=== PATIENT | male | born 1945 | race Caucasian/White ===

== ENCOUNTER 2016-07-04 18:03 | Emergency (ER) | payer OTHER ==
[2016-07-04 18:15] VITALS: BP 154/56; PULSE 66; RESP 16; TEMP 97.5; O2SAT 96
--- NOTE | 2016-07-04 18:50 | UCPHY ---
H & P Time Seen by Provider: 07/04/16 18:18 Patient Type: Established HPI/ROS: 71-year-old male presents complaining of laceration to his left pointer finger obtained by boxer operator while he was cleaning out his garage. Able to move his finger without difficulty. Review of systems General no fever no chills no weakness HEENT no eye pain no eye discharge. No eye redness, no sore throat Respiratory no cough, no shortness of breath Cardiac no chest pain, no peripheral edema GI no abdominal pain, no diarrhea, no constipation, no nausea, no vomiting no flank pain, no hematuria, no dysuria Musculoskeletal no myalgias, no joint pain Heme no easy bruising, no easy bleeding Endo no polyuria, no polydipsia Skin no rashes, no pruritus Neuro no syncope, no dizziness, no headaches Psych is no suicidal ideation, no homicidal ideation Past Medical/Surgical History: Hypertension Vitamin-D deficiency Social History: Denies drug use Smoking Status: Former smoker Physical Exam: 71-year-old male alert and oriented no acute distress nontoxic appearance afebrile Alert and oriented in no acute distress nontoxic appearance, afebrile Atraumatic normocephalic Neck no JVD Lungs clear to auscultation, no respiratory distress Heart regular rate and rhythm Extremities no cyanosis clubbing edema Left hand-good capillary refill, full range of motion of all digits. Left pointer finger radial aspect, L-shaped laceration Constitutional: Initial Vital Signs Temperature (C) 36.4 C 07/04/16 18:09 Heart Rate 66 07/04/16 18:09 Respiratory Rate 16 07/04/16 18:09 Blood Pressure 154/56 H 07/04/16 18:09 O2 Sat (%) 96 07/04/16 18:09 O2 Delivery Mode Room Air Allergies/Adverse Reactions: codeine [Codeine] Allergy (Severe, Verified 07/04/16 18:12) Anaphylaxis morphine [Morphine] Allergy (Severe, Verified 07/04/16 18:12) Anaphylaxis Home Medications: Medication Instructions Recorded Aspirin [Aspirin 81mg (*)] 12/05/12 Carvedilol [Coreg (*)] 12/05/12 Cholecalciferol Vit D3 [Vitamin D3 12/05/12 (*)] Clopidogrel Bisulfate [Plavix (*)] 12/05/12 Enalapril Maleate [Vasotec 5 MG 12/05/12 (*)] Multivitamins [Multivitamin (*)] 12/05/12 NIFEdipine ER [Adalat CC 30 mg (*)] 12/05/12 [place]-3 Fatty Acids [Fish Oil 1000 04/13/14 mg (*)] Gabapentin [Neurontin] 09/07/14 Glucosamine Sulfate [Glucosamine 09/07/14 Sulfate 500 MG (*)] Magnesium Oxide [Magnesium Oxide 09/07/14 500 mg] Simvastatin [Zocor] 09/07/14 buPROPion SR [Wellbutrin 150mg SR 09/07/14 (*)] Medical Decision Making Procedures: Procedure note-laceration The wound was irrigated with copious amounts of saline. Lidocaine 1% combined with bupivacaine 0.25% for digital block 5 simple interrupted sutures were placed. 4-0 Ethilon was used. Patient tolerated procedure well. ED Course/Re-evaluation: Patient seen and evaluated for finger laceration No tendon involvement no joint involvement Impression Left pointer finger laceration Plan Sutured care Return in 10-12 days for suture removal Departure - Departure Disposition: Home, Routine, Self-Care Clinical Impression: Finger laceration Condition: Good Instructions: Finger Laceration (ED) Additional Instructions: Return in 10-12 days for suture removal Referrals: Betsy Dallas MD [Primary Care Provider] - As per Instructions - PQRS PQRS Measurement: na
== END 2016-07-04 19:45 | disposition home or self-care (01) ==
LOC: CED 18:03
PROC: 0HQGXZZ Repair Left Hand Skin, External Approach (ICD-10-PCS; principal; 2016-07-04)
DX: S61.211A Laceration without foreign body of left index finger without damage to nail, initial encounter (principal); W27.0XXA Contact with workbench tool, initial encounter; Y92.015 Private garage of single-family (private) house as the place of occurrence of the external cause; Y93.E9 Activity, other interior property and clothing maintenance; Y99.8 Other external cause status; Z87.891 Personal history of nicotine dependence
CPT/HCPCS: 12001; G0463

== ENCOUNTER → 2016-11-05 | Outpatient (CLI) | payer OTHER | LOC: CIMAGING 12:30 | DX: Z95.828 Presence of other vascular implants and grafts (principal) | CPT/HCPCS: 93880-PO ==

== ENCOUNTER → 2016-12-22 | Outpatient (CLI) | payer OTHER | LOC: FIMAGING 07:46 | PROVIDERS: ATTEND Orthopaedic Surgery | DX: S83.242A Other tear of medial meniscus, current injury, left knee, initial encounter (principal); M22.42 Chondromalacia patellae, left knee ==

== ENCOUNTER 2017-09-08 09:15 | Inpatient (IN) | payer OTHER ==
[2017-11-17] MEDS ORDERED: ROPIVACAINE 0.2% 80 MG, EPINEPHrine 0.2 MG, KETOROLAC TROMETHAMINE 30 MG, morphINE 10 M... IU ONE (06:00)
[2017-11-17] MEDS ORDERED: ceFAZolin 2 GM/SWFI 2 GM/20 ML SYR IVP ONE (06:00)
[2017-11-17] MEDS ORDERED: FAMOTIDINE 20 MG TAB PO ONE ×2 (06:00→11:04)
[2017-11-17] MEDS ORDERED: ACETAMINOPHEN 325 MG TAB PO ONE ×2 (06:00→11:04)
[2017-11-17] MEDS ORDERED: TRANEXAMIC ACID 3,000 MG in NS (SYRINGE) 50 ML IRR ONE (06:00)
[2017-11-17] MEDS ORDERED: DEXAMETHASONE 4 MG/ML VIAL IVP ONE ×2 (06:00→11:04)
[2017-11-17] MEDS ORDERED: ROPIVACAINE 0.2% 80 MG, EPINEPHrine 0.2 MG, KETOROLAC TROMETHAMINE 30 MG in SYRINGE 0 ML IU ONE (06:00)
--- NOTE | 2017-11-17 07:18 | PDHPUP ---
History & Physical Update H&P update statement: This history and physical update is based on an assessment of the patient which was completed after admission or registration (within 24 hours), but prior to the surgery/procedure. H&P update: H&P reviewed & patient examined, no change in patient's condition since H&P completed
[2017-11-17] MEDS ORDERED: TRANEXAMIC ACID 3,000 MG/50 ML BAG IRR ONE (10:26)
[2017-11-17] MEDS ORDERED: ceFAZolin 2 GM/DEXTROSE 100 ML IV ONE (11:04)
[2017-11-17] MEDS ORDERED: LR 1,000 ML IV ONE (11:07)
[2017-11-17] MEDS ORDERED: LIDOCAINE 1% 2 ML INJ ID PRN (11:07)
[2017-11-17 11:52] LABS: PLATELET COUNT 149 10^3/uL (150-400)
[2017-11-17] MEDS ORDERED: MIDAZOLAM 2 MG/2 ML VIAL IVP ONE (13:03)
--- NOTE | 2017-11-17 13:05 | PDANEPAE ---
ANE History of Present Illness l knee oa ANE Past Medical History - Cardiovascular History Hx Hypertension: Yes Hx Arrhythmias: Yes Hx Chest Pain: No Hx Coronary Artery / Peripheral Vascular Disease: Yes Hx CHF / Valvular Disease: Yes Hx Palpitations: No Cardiovascular History Comment: VENTRICULAR TACHYCARDIA. CAD WITH STENT,OHS triple bypass, aortic insufficiency. PVD WITH CLAUDICATION. HTN. - Pulmonary History Hx COPD: No Hx Asthma/Reactive Airway Disease: No Hx Recent Upper Respiratory Infection: No Hx Oxygen in Use at Home: No Hx Sleep Apnea: Yes Sleep Apnea Screening Result - Last Documented: Positive Pulmonary History Comment: SPARKLE DX HAD SLEEP APNEA SURGERY- REFUSES TO USE CPAP OR O2 - Neurologic History Hx Cerebrovascular Accident: No Hx Seizures: No Hx Dementia: No Neurologic History Comment: carotid stent - Endocrine History Hx Diabetes: No Endocrine History Comment: NIDDM - Renal History Hx Renal Disorders: Yes Renal History Comment: HX OF KIDNEY STONE SURGERY 2011 - Liver History Hx Hepatic Disorders: No - Neurological & Psychiatric Hx Hx Neurological and Psychiatric Disorders: Yes Neurological / Psychiatric History Comment: DEPRESSION. ANXIETY WITH CURRENT SITUATION - Cancer History Hx Cancer: No Cancer History Comment: SKIN CANCER - Congenital Disorder History Hx Congenital Disorders: No - GI History Hx Gastrointestinal Disorders: No Gastrointestinal History Comment: reflux - Other Health History Other Health History: NONE - Chronic Pain History Chronic Pain: Yes (CHRONIC PAIN AND LEFT SHOULDER, BILATERAL LEGS) - Surgical History Prior Surgeries: TIPLE BYPASS 2004. CARDIAC STENTS PLACED 2003. BILATERAL SHOULDER SURGERY. BILATERAL HAND SURGERY. LEFT HIP SCOPE. 4 STENTS PLACED IN RIGHT UPPER LEG 04/2014. KNEE SURGERY. SPARKLE SURGERY. KIDNEY STONE SURGERY 2011 ANE Review of Systems Review of Systems: - Exercise capacity METS (RN): 4 METS ANE Patient History - Allergies Allergies/Adverse Reactions: codeine [Codeine] Allergy (Severe, Verified 11/17/17 11:44) Anaphylaxis morphine [Morphine] Allergy (Severe, Verified 11/17/17 11:44) Anaphylaxis - Home Medications Home Medications: Acetaminophen [Tylenol 325mg (*)] 325 mg PO Q6H PRN 08/24/17 [Last Taken ] Aspirin EC [Aspirin EC 81 mg (*)] 81 mg PO DAILY 08/24/17 [Last Taken 11/16/17] Bupropion HCl [Bupropion HCl Sr] 150 mg PO HS 08/24/17 [Last Taken 11/16/17] Bupropion HCl [Bupropion HCl Sr] 300 mg PO DAILY 08/24/17 [Last Taken 11/17/17 06:15] Carvedilol [Coreg (*)] 6.25 mg PO BIDMEAL 08/24/17 [Last Taken 11/17/17 06:15] Cholecalciferol Vit D3 [Vitamin D3 (*)] 5,000 units PO DAILY 08/24/17 [Last Taken 11/16/17] Clopidogrel Bisulfate [Plavix (*)] 75 mg PO DAILY 08/24/17 [Last Taken 11/09/17] Enalapril Maleate [Vasotec 5 MG (*)] 5 mg PO DAILY 08/24/17 [Last Taken 11/16/17 ] Gabapentin [Neurontin 300 MG (*)] 450 mg PO HS 08/24/17 [Last Taken 11/16/17] Gabapentin [Neurontin 300 MG (*)] 600 mg PO DAILY 08/24/17 [Last Taken 11/17/17 06:15] Magnesium Oxide [Magnesium Oxide 400 mg (*)] 400 mg PO DAILY 08/24/17 [Last Taken 11/16/17] NIFEdipine ER [Adalat CC 30 mg (*)] 30 mg PO DAILY 08/24/17 [Last Taken 06:15] [place]-3 Fatty Acids [Fish Oil 1000 mg (*)] 2,000 mg PO DAILY 08/24/17 [Last Taken 11/16/17] Simvastatin [Zocor] 80 mg PO HS 08/24/17 [Last Taken 11/16/17 21:00] metFORMIN HCL [Metformin HCl] 500 mg PO DAILY 08/24/17 [Last Taken 11/16/17 06: 30] - NPO status NPO Since - Liquids (Date): 11/17/17 NPO Since - Liquids (Time): 09:15 NPO Since - Solids (Date): 11/16/17 NPO Since - Solids (Time): 21:00 - Smoking Hx Smoking Status: Former smoker - Family Anes Hx Family Hx Anesthesia Complications: NONE ANE Labs/Vital Signs - Labs Result Diagrams: 11/17/17 11:45 11/17/17 11:45 - Vital Signs Blood Pressure: 143/58 Heart Rate: 64 Respiratory Rate: 16 O2 Sat (%): 93 Height: 180.34 cm Weight: 98.43 kg ANE Physical Exam - Airway Neck exam: FROM Mallampati Score: Class 2 Mouth exam: dentures - Pulmonary Pulmonary: no respiratory distress - Cardiovascular Cardiovascular: regular rate and rhythym - ASA Status ASA Status: IV ANE Anesthesia Plan Anesthesia Plan: MAC, spinal Regional Anesthesia: adductor canal FNB
[2017-11-17] MEDS ORDERED: fentaNYL 100 MCG/2 ML INJ ONE (13:37)
[2017-11-17] MEDS ORDERED: PROPOFOL/EMULSION 500 MG/50 ML BOTTLE IV ONE (13:37)
[2017-11-17] MEDS ORDERED: LACTULOSE 20 GM/30 ML UDCUP PO PRN (14:18)
[2017-11-17] MEDS ORDERED: METOCLOPRAMIDE 10 MG/2 ML VIAL IVP PRN (14:18)
[2017-11-17] MEDS ORDERED: PROMETHAZINE HCL 25 MG SUPPR PR PRN (14:18)
[2017-11-17] MEDS ORDERED: POLYETHYLENE GLYCOL 3350 17 GM PKT PO PRN (14:18)
[2017-11-17] MEDS ORDERED: DIPHENOXYLATE/ATROPINE LOMOTIL 1 TAB PO PRN (14:18)
[2017-11-17] MEDS ORDERED: BISACODYL 10 MG SUPP PR PRN (14:18)
[2017-11-17] MEDS ORDERED: MAGNESIUM HYDROXIDE 30 ML UDCUP PO PRN (14:18)
[2017-11-17] MEDS ORDERED: diphenhydrAMINE 25 MG CAP PO PRN (14:18)
[2017-11-17] MEDS ORDERED: ONDANSETRON 4 MG/2 ML VIAL IVP PRN (14:18)
[2017-11-17] MEDS ORDERED: TEMAZEPAM 15 MG CAP PO PRN (14:18)
[2017-11-17] MEDS ORDERED: ONDANSETRON DISINTEGRATING 4 MG TAB PO PRN (14:18)
[2017-11-17] MEDS ORDERED: PROMETHAZINE HCL 25 MG/ML INJ IVP PRN (14:18)
[2017-11-17] MEDS ORDERED: LR 1,000 ML IV SCH (14:30)
[2017-11-17] MEDS ORDERED: ROPIVACAINE HCL 150 MG/30 ML INJ ONE (14:48)
[2017-11-17] MEDS ORDERED: fentaNYL 100 MCG/2 ML INJ IVP PRN (14:56)
[2017-11-17] MEDS ORDERED: HYDROmorphONE/DILAUDID 1 MG/ML INJ IVP PRN (14:56)
[2017-11-17] MEDS ORDERED: NALOXONE HCL 0.4 MG/ML INJ IVP PRN (14:56)
--- NOTE | 2017-11-17 15:24 | POSTANESTH ---
Post Anesthetic Evaluation Cardiovascular Status: Normal, Stable Respiratory Status: Normal, Stable Level of Consciousness/Mental Status: Can Participate in Eval Pain Control: Adequate, Prn Tx Ordered Nausea/Vomiting Control: Adequate, Prn Tx Ordered Complications Possibly Related to Anesthesia: None Noted
[2017-11-17] MEDS ORDERED: HYDROmorphONE/DILAUDID 1 MG/ML INJ ONE (15:58)
--- NOTE | 2017-11-17 15:58 | POSTOPPROG ---
Post Op Note Date of Operation: 11/17/17 Surgeon: Rashid Daley Ekg Monitor Tech: Mavrin Daley PAc Anesthesiologist: Marni Anesthesia: Spinal Pre-op Diagnosis: L knee DJD Post-op Diagnosis: same Indication: pain Procedure: L TKA Findings: DJD knee Inf/Abcess present in the surg proc area at time of surgery?: No EBL: 50-100
[2017-11-17] MEDS ORDERED: D50W 25 GM/50 ML SYR IVP PRN (16:00)
[2017-11-17] MEDS: HYDROmorphONE/DILAUDID 2 MG TAB PO PRN (17:21)
[2017-11-17] MEDS: ACETAMINOPHEN 325 MG TAB PO SCH (17:21)
[2017-11-17] MEDS: CYCLOBENZAPRINE 10 MG TAB PO PRN (17:22)
[2017-11-17] MEDS: INSULIN REGULAR HUMAN 100 UNIT/ML UNIT SC SCH ×2 (17:32→21:37)
[2017-11-17] MEDS: CARVEDILOL 6.25 MG TAB PO SCH (17:32)
[2017-11-17] MEDS ORDERED: GABAPENTIN 300 MG CAP PO SCH (21:00)
[2017-11-17] MEDS: buPROPion SR 150 MG TAB PO SCH (21:37)
[2017-11-17] MEDS: GABAPENTIN 300 MG CAP PO SCH (21:37)
[2017-11-17] MEDS: SENNOSIDES/DOCUSATE SODIUM TAB PO SCH (21:37)
[2017-11-17] MEDS: ATORVASTATIN CALCIUM 40 MG TAB PO SCH (21:37)
[2017-11-17] MEDS: FAMOTIDINE 20 MG TAB PO SCH (21:37)
[2017-11-17] MEDS: ceFAZolin 2 GM/DEXTROSE 100 ML IV SCH (21:39)
[2017-11-18] MEDS: ACETAMINOPHEN 325 MG TAB PO SCH ×4 (00:24→18:04)
[2017-11-18] MEDS: ceFAZolin 2 GM/DEXTROSE 100 ML IV SCH (05:08)
[2017-11-18] MEDS: INSULIN REGULAR HUMAN 100 UNIT/ML UNIT SC SCH ×4 (08:39→22:04)
[2017-11-18] MEDS: ENALAPRIL MALEATE 5 MG TAB PO SCH (08:47)
[2017-11-18] MEDS: HYDROmorphONE/DILAUDID 2 MG TAB PO PRN ×4 (08:47→21:43)
[2017-11-18] MEDS: SENNOSIDES/DOCUSATE SODIUM TAB PO SCH ×2 (08:48→21:43)
[2017-11-18] MEDS: NIFEdipine ER 30 MG TAB PO SCH (08:48)
[2017-11-18] MEDS: GABAPENTIN 300 MG CAP PO SCH ×2 (08:48→21:43)
[2017-11-18] MEDS: MAGNESIUM OXIDE 400 MG TAB PO SCH (08:49)
[2017-11-18] MEDS: CARVEDILOL 6.25 MG TAB PO SCH ×2 (08:49→18:04)
[2017-11-18] MEDS: FAMOTIDINE 20 MG TAB PO SCH ×2 (08:49→21:43)
[2017-11-18] MEDS: metFORMIN HCL 500 MG TAB PO SCH (08:49)
[2017-11-18] MEDS: buPROPion SR 150 MG TAB PO SCH ×2 (08:49→21:44)
[2017-11-18] MEDS: CLOPIDOGREL BISULFATE 75 MG TAB PO SCH (08:50)
[2017-11-18] MEDS: ASPIRIN EC 81 MG TAB PO SCH (08:50)
--- NOTE | 2017-11-18 09:49 | SOAPPROG ---
SOAP Progress Note Assessment/Plan: Assessment: Patient is doing well POD 1 s/p L TKA Pain management: pain is well controlled on oral pain meds. VTE ppx: recommend resuming plavix and aspirin 81 mg cont RAFI and SCDs Anemia: level is expected initially postop. Asymptomatic. Continue to monitor D/c planning: d/c to home today vs tomorrow pending release from PT and patient 's comfort level. Patient's has expressed concern that she has a doctor's appt this afternoon and that she doesn't want to take him home before appt. Discussed with patient that he could be discharged after his 's appt if that alleviates some stress. Patient's has had multiple medical issues recently and recovering from surgery. Prior to surgery, discussed home health, but both stated that they did not want home health. case management was ordered. OT has seen patient, but no PT note yet. Plan: 11/18/17 09:44 Subjective: Da is doing well, resting comfortably, denies SOB, chest pain and N/V. Objective: Vital Signs Temp Pulse Resp BP Pulse Ox 36.6 C 67 16 135/81 H 92 11/18/17 07:58 11/18/17 08:49 11/18/17 07:58 11/18/17 08:49 11/18/17 07:58 Laboratory Results 11/18/17 05:16 11/18/17 05:16 11/17/17 11/18/17 11/19/17 05:59 05:59 05:59 Intake Total 2950 Output Total 1600 Balance 1350 LLE: incision dressing is clean and dry, NVI, +pf/df ICD10 Worksheet Patient Problems: Problems Problem Status Onset Primary localized osteoarthritis of left knee Acute Claudication Acute Unstable angina Acute
--- NOTE | 2017-11-18 11:01 | GOP ---
[f rep st] OPERATIVE REPORT DATE OF OPERATION: 11/18/2017 SURGEON: Nell Daley MD [employer] OPERATOR: KLEVER Davis. ANESTHESIA: Spinal. PREOPERATIVE DIAGNOSIS: Left knee osteoarthritis. POSTOPERATIVE DIAGNOSIS: Left knee osteoarthritis. PROCEDURE PERFORMED: Total knee arthroplasty. FINDINGS: Severe medial and patellofemoral osteoarthritis. ESTIMATED BLOOD LOSS: 30 mL. INDICATIONS: This is a 72-year-old male with severe and progressive pain and deformity of the left k nee unresponsive to conservative care. Risks and benefits of the surgical intervention were explaine d in detail. DESCRIPTION OF PROCEDURE: The patient was brought to the operative room and placed on the table in t he supine position. Spinal anesthesia was induced without difficulty. A pneumatic tourniquet was ap plied about the left proximal thigh, and the leg was prepped and draped in a sterile fashion. The le g bruce was applied. After exsanguination by elevation the tourniquet was inflated to 250 mm of monae cury. Incision was made anterior medial from the tibial tuberosity to a point 2 cm proximal to the superior pole of the patella. Medial parapatellar arthrotomy was carried out from the superior pole of the p atella and posteriorly in line with the fibers of the Type II VMO. The medial collateral ligament wa s elevated and the infrapatellar fat pad was resected. The patella was everted and the articular surface was excised. A 38 mm patellar button was placed. T he distal femoral guide hole was drilled and the 60 degree alignment toya was placed. A 10 mm distal femoral cut was made without difficulty. Attention was turned to the tibia and a standard 9 mm cut based on the lateral tibial condyle was per formed. The tibial articular surface was excised without difficulty. Attention was turned back to the femur and a size 5 femoral cutting block was positioned. Anterior, posterior, and chamfer cuts were made, followed by the intercondylar box cut. The knee was extended and the remnants of the medial and lateral meniscus were excised. The posterio r capsule was injected with ropivacaine, epinephrine and Toradol. A size 6 tibial tray was positione d. Trial reduction was then carried out. There was excellent range of motion, alignment, and stabil ity using the 11 mm polyethylene. All trials were then removed. The joint was thoroughly irrigated and carefully dried. Two packages of cement and 2 grams of vancomycin were mixed in the vacuum mixer and placed on the fixation surface s of all surfaces of the components. The components were implanted and all excess cement was thoroug hly removed. The permanent 11 mm polyethylene was placed without difficulty. The tourniquet was deflated and all bleeders were coagulated. The wound was thoroughly irrigated and closed using interrupted sutures of 2-0 Vicryl for the joint capsule. The subcu was closed with 3-0 Vicryl and the skin with 4-0 Monocryl. Dermabond and Steri-Strips were applied followed by a compre ssive dressing. The patient was then moved from the operating room to the recovery room in good cond ition, having tolerated the procedure well. COMPONENTS: Guy. /[id number]/MODL
--- NOTE | 2017-11-18 12:45 | ASMTCMCOM ---
CM Note CM Note Notes: Pt had planned L TKA. OT rec home/HHC, PT rec outpatient. Pt not interested in HHC; reports he knows what HHC is and he does not want to be "homebound." Pt has outpatient PT scheduled. Pt resides with . Pt declines resources such as [employer] Whe[employer] and information on private pay unskilled home care. Anticipate pt will d/c when medically stable, no CM d/c needs identified. Date Signed: 11/18/2017 12:45 PM Electronically Signed By:DARLYN Glynn
[2017-11-18] MEDS: CYCLOBENZAPRINE 10 MG TAB PO PRN (19:41)
[2017-11-18] MEDS: ATORVASTATIN CALCIUM 40 MG TAB PO SCH (21:43)
[2017-11-19] MEDS: ACETAMINOPHEN 325 MG TAB PO SCH ×2 (01:35→05:42)
[2017-11-19] MEDS: HYDROmorphONE/DILAUDID 2 MG TAB PO PRN ×2 (05:42→06:45)
[2017-11-19] MEDS: INSULIN REGULAR HUMAN 100 UNIT/ML UNIT SC SCH ×4 (07:34→22:32)
[2017-11-19] MEDS: CLOPIDOGREL BISULFATE 75 MG TAB PO SCH (08:46)
[2017-11-19] MEDS: MAGNESIUM OXIDE 400 MG TAB PO SCH (08:46)
[2017-11-19] MEDS: metFORMIN HCL 500 MG TAB PO SCH (08:46)
[2017-11-19] MEDS: SENNOSIDES/DOCUSATE SODIUM TAB PO SCH ×2 (08:46→21:20)
[2017-11-19] MEDS: CARVEDILOL 6.25 MG TAB PO SCH ×2 (08:47→18:06)
[2017-11-19] MEDS: NIFEdipine ER 30 MG TAB PO SCH (08:47)
[2017-11-19] MEDS: GABAPENTIN 300 MG CAP PO SCH ×2 (08:47→21:18)
[2017-11-19] MEDS: ASPIRIN EC 81 MG TAB PO SCH (08:47)
[2017-11-19] MEDS: FAMOTIDINE 20 MG TAB PO SCH ×2 (08:47→21:19)
[2017-11-19] MEDS: buPROPion SR 150 MG TAB PO SCH ×2 (08:48→21:20)
[2017-11-19] MEDS: ENALAPRIL MALEATE 5 MG TAB PO SCH (09:01)
--- NOTE | 2017-11-19 11:34 | PDHOSCONS ---
History and Physical - Chief Complaint Stroke alert called for slurred speech - History of Present Illness 72 yo male admitted for left TKA, performed by Dr. Daley yesterday, reportedly had slurred speech this am per RN and a stroke alert was called. He denies headache, vision changes or focal weakness. He received 4 mg oral dilaudid this morning. He reports a h/o TIA in the past. BP's have been labile. No CP or SOB. During my exam, his speech is fluent and he denies any focal symptoms. History Information - Allergies/Home Medication List Allergies/Adverse Reactions: codeine [Codeine] Allergy (Severe, Verified 11/17/17 11:44) Anaphylaxis morphine [Morphine] Allergy (Severe, Verified 11/17/17 11:44) Anaphylaxis Home Medications: Aspirin EC [Aspirin EC 81 mg (*)] 81 mg PO DAILY 08/24/17 [Last Taken 11/16/17] Bupropion HCl [Bupropion HCl Sr] 150 mg PO HS 08/24/17 [Last Taken 11/16/17] Bupropion HCl [Bupropion HCl Sr] 300 mg PO DAILY 08/24/17 [Last Taken 11/17/17 06:15] Carvedilol [Coreg (*)] 6.25 mg PO BIDMEAL 08/24/17 [Last Taken 11/17/17 06:15] Cholecalciferol Vit D3 [Vitamin D3 (*)] 5,000 units PO DAILY 08/24/17 [Last Taken 11/16/17] Clopidogrel Bisulfate [Plavix (*)] 75 mg PO DAILY 08/24/17 [Last Taken 11/09/17] Enalapril Maleate [Vasotec 5 MG (*)] 5 mg PO DAILY 08/24/17 [Last Taken 11/16/17 ] Gabapentin [Neurontin 300 MG (*)] 600 mg PO DAILY 08/24/17 [Last Taken 11/17/17 06:15] Magnesium Oxide [Magnesium Oxide 400 mg (*)] 400 mg PO DAILY 08/24/17 [Last Taken 11/16/17] NIFEdipine ER [Adalat CC 30 mg (*)] 30 mg PO DAILY 08/24/17 [Last Taken 06:15] [place]-3 Fatty Acids [Fish Oil 1000 mg (*)] 2,000 mg PO DAILY 08/24/17 [Last Taken 11/16/17] Simvastatin [Zocor] 80 mg PO HS 08/24/17 [Last Taken 11/16/17 21:00] metFORMIN HCL [Metformin HCl] 500 mg PO DAILY 08/24/17 [Last Taken 11/16/17 06: 30] Gabapentin [Neurontin] 900 mg PO HS 11/17/17 [Last Taken Unknown] I have personally reviewed and updated: family history, medical history, social history, surgical history - Past Medical History arthritis, diabetes type 2, hypertension, hyperlipidemia - Surgical History Additional surgical history: Left TKA 11/18/2017 - Family History Positive for: non-pertinent - Social History Smoking Status: Former smoker Additional social history: Lives independently Review of Systems Review of Systems: ROS: 10pt was reviewed & negative except for what was stated in HPI & below Physical Exam Physical Exam: Temp Pulse Resp BP Pulse Ox 36.6 C 67 17 128/56 H 95 11/19/17 07:30 11/19/17 08:47 11/19/17 07:30 11/19/17 09:01 11/19/17 07:30 O2 (L/minute) 1 Constitutional: no apparent distress Eyes: PERRL Ears, Nose, Mouth, Throat: moist mucous membranes Cardiovascular: regular rate and rhythym Respiratory: no respiratory distress, clear to auscultation Gastrointestinal: normoactive bowel sounds, soft, non-tender abdomen Skin: warm Musculoskeletal: full muscle strength Neurologic: AAOx3, other (no facial droop, neg pronator drift, 5/5 muscle strength UE's and LE's b/l) Psychiatric: interacting appropriately Lab Data & Imaging Review 11/19/17 04:33 11/19/17 12:55 WBC 6.00 10^3/uL (3.80-9.50) 11/17/17 11:45 RBC 4.92 10^6/uL (4.40-6.38) 11/17/17 11:45 Hgb 11.8 g/dL (13.7-17.5) L 11/19/17 04:33 Hct 36.1 % (40.0-51.0) L 11/19/17 04:33 MCV 86.2 fL (81.5-99.8) 11/17/17 11:45 MCH 28.9 pg (27.9-34.1) 11/17/17 11:45 MCHC 33.5 g/dL (32.4-36.7) 11/17/17 11:45 RDW 13.5 % (11.5-15.2) 11/17/17 11:45 Plt Count 149 10^3/uL (150-400) L 11/17/17 11:45 MPV 9.4 fL (8.7-11.7) 11/17/17 11:45 Neut % (Auto) 57.3 % (39.3-74.2) 11/17/17 11:45 Lymph % (Auto) 29.7 % (15.0-45.0) 11/17/17 11:45 [place] % (Auto) 10.3 % (4.5-13.0) 11/17/17 11:45 Eos % (Auto) 2.0 % (0.6-7.6) 11/17/17 11:45 Baso % (Auto) 0.5 % (0.3-1.7) 11/17/17 11:45 Nucleat RBC Rel Count 0.0 % (0.0-0.2) 11/17/17 11:45 Absolute Neuts (auto) 3.44 10^3/uL (1.70-6.50) 11/17/17 11:45 Absolute Lymphs (auto) 1.78 10^3/uL (1.00-3.00) 11/17/17 11:45 Absolute Monos (auto) 0.62 10^3/uL (0.30-0.80) 11/17/17 11:45 Absolute Eos (auto) 0.12 10^3/uL (0.03-0.40) 11/17/17 11:45 Absolute Basos (auto) 0.03 10^3/uL (0.02-0.10) 11/17/17 11:45 Absolute Nucleated RBC 0.00 10^3/uL (0-0.01) 11/17/17 11:45 Immature Gran % 0.2 % (0.0-1.1) 11/17/17 11:45 Immature Gran # 0.01 10^3/uL (0.00-0.10) 11/17/17 11:45 Sodium 136 mEq/L (135-145) 11/18/17 05:16 Potassium 4.5 mEq/L (3.3-5.0) 11/18/17 05:16 Chloride 106 mEq/L (97-110) 11/18/17 05:16 Carbon Dioxide 26 mEq/l (22-31) 11/18/17 05:16 Anion Gap 4 mEq/L (8-16) L 11/18/17 05:16 BUN 16 mg/dL (7-23) 11/18/17 05:16 Creatinine 0.8 mg/dL (0.7-1.3) 11/18/17 05:16 Estimated GFR > 60 11/18/17 05:16 Glucose 170 mg/dL (70-100) H 11/18/17 05:16 POC Glucose 134 mg/dL (70-100) H 11/19/17 11:19 Calcium 8.8 mg/dL (8.5-10.4) 11/18/17 05:16 Assessment & Plan Assessment: Slurred speech - suspect opioid side effect. Stroke alert called. On my exam, he is neurologically intact. -STAT CT head without contrast, but stand-down on stroke alert -avoid opioids -frequent neurochecks Primary localized osteoarthritis of left knee (Acute) - s/p left TKA, post-op management per orthopedic surgery. Given suspected side effects from Dilaudid, will d/c and add scheduled high dose Tylenol with prn Tramadol for pain control. Hypertension - BP's a bit labile post-operatively. -cont Coreg, Jurgen, Nifedipine H/O TIA - on ASA, Plavix, statin Full code Dispo - cont inpt. Medicine will continue to follow.
[2017-11-19] MEDS: ACETAMINOPHEN 500 MG TAB PO SCH ×2 (12:24→21:19)
[2017-11-19] MEDS: traMADol 50 MG TAB PO PRN ×2 (12:24→18:29)
--- NOTE | 2017-11-19 14:15 | PDMN ---
Medical Necessity Medical necessity: [facility] S700 Knee Arthroplasty, Total, A-2 days. 72 y/o status changed from OBS to INPT 11/19/17 @ 1048 due to "multiple comorbidities, difficulty postop, more than anticipated prior to surgery. Recommend inpatient for PT and medical assistance and care post op." Patient developed slurred speech post op, stroke alert called, CT head WNL, possible opioid side effect. Pt now on frequent neuro checks. Labile BPs. Pt has history TIA, CAD w/ Stent , OHS triple bypass, aortic insufficiency, hypertension, PVD with claudication, VTach.
--- NOTE | 2017-11-19 15:22 | ASMTCMCOM ---
CM Note CM Note Notes: Pt had slurred speech this morning, hospitalist now consulting. Today PT rec SNF. Spoke with pt and Anju about SNF rec. Pt is not interested in SNF, pt verbalizes his current physical challenges and limitations and states he can go home once his medications are under control. Anju was in [facility] a couple years ago and they both vacillate on if they would be agreeable to consider [facility] should SNF be needed. Pt still not agreeable to [facility], reports he has outpatient PT scheduled at [facility]. CM will continue to follow pt progress. Date Signed: 11/19/2017 03:21 PM Electronically Signed By:DARLYN Glynn
[2017-11-19] MEDS: ATORVASTATIN CALCIUM 40 MG TAB PO SCH (21:19)
[2017-11-20] MEDS: ACETAMINOPHEN 500 MG TAB PO SCH ×3 (04:34→21:27)
[2017-11-20] MEDS: traMADol 50 MG TAB PO PRN ×3 (04:35→17:30)
[2017-11-20] MEDS ORDERED: traMADol 50 MG TAB PO ONE (05:49)
[2017-11-20] MEDS: INSULIN REGULAR HUMAN 100 UNIT/ML UNIT SC SCH ×4 (08:20→21:23)
[2017-11-20] MEDS: metFORMIN HCL 500 MG TAB PO SCH (08:21)
[2017-11-20] MEDS: GABAPENTIN 300 MG CAP PO SCH ×2 (08:21→21:26)
[2017-11-20] MEDS: NIFEdipine ER 30 MG TAB PO SCH (08:21)
[2017-11-20] MEDS: ASPIRIN EC 81 MG TAB PO SCH (08:21)
[2017-11-20] MEDS: CLOPIDOGREL BISULFATE 75 MG TAB PO SCH (08:21)
[2017-11-20] MEDS: FAMOTIDINE 20 MG TAB PO SCH ×2 (08:21→21:27)
[2017-11-20] MEDS: MAGNESIUM OXIDE 400 MG TAB PO SCH (08:21)
[2017-11-20] MEDS: buPROPion SR 150 MG TAB PO SCH ×2 (08:22→21:28)
[2017-11-20] MEDS: CARVEDILOL 6.25 MG TAB PO SCH ×2 (08:22→17:29)
[2017-11-20] MEDS: SENNOSIDES/DOCUSATE SODIUM TAB PO SCH ×2 (08:22→21:28)
[2017-11-20] MEDS: ENALAPRIL MALEATE 5 MG TAB PO SCH (08:22)
--- NOTE | 2017-11-20 10:44 | SOAPPROG ---
SOAP Progress Note Assessment/Plan: Assessment: Patient is doing well POD 3 s/p L TKA 1). Pain management: pain is not well controlled. patient had incident of slurred speech yesterday and c/o sluggishness thought to be 2/2 narcotic pain meds. negative head CT scan. Patient had been receiving 650mg tylenol Q6H scheduled and 2mg dilaudid Q3H PRN, hospitalist d/c both, added in 25mg tramadol Q6H PRN and 1gram tylenol scheduled Q8H. Hospitalist was called this morning for request of additional pain meds by nurse. Orthopedics was not consulted. I believe patient needs more narcotic pain meds as tramadol is a weak opioid receptor agonist and as it is currently ordered he can max out at 100mg daily which is only 1/4 of total daily limit of 400mg. I will increase his tramadol and we should consider adding in 2mg dilaudid Q6H PRN. Discussed with patient the importance of PT. He refused PT all day yesterday due to pain. Increase risk of blood clots postop and poor outcomes if pain control is not controlled sufficiently to allow patient to work with PT. 2). VTE ppx: recommend resuming plavix and aspirin 81 mg cont RAFI and SCDs 3). Anemia: level is expected initially postop. Asymptomatic. Continue to monitor 4). D/c planning: d/c to home vs SNF. At this point, patient has not demonstrated that he safe for d/c to home and it is recommended that patient d/ c to SNF once safe to do so. Patient is reluctant and still prefers d/c to home if possible. Encouraged patient to work with PT and OT. I believe with better pain management it may be possible. Appreciate case management's assistance arranging postop needs. Plan: 11/18/17 09:44 11/20/17 10:36 Subjective: Da is resting comfortably in chair, but states pain is 5-6/10 and that he has significant increase in pain when he stands. Objective: Vital Signs Temp Pulse Resp BP Pulse Ox 36.7 C 79 17 138/68 H 93 11/20/17 07:28 11/20/17 07:28 11/20/17 07:28 11/20/17 07:28 11/20/17 07:28 Laboratory Results 11/19/17 04:33 11/19/17 12:55 11/19/17 11/20/17 11/21/17 05:59 05:59 05:59 Intake Total 1050 1650 250 Output Total 700 3100 650 Balance 350 -1450 -400 LLE; incision dressing has small area of bloody drainage distal incision dressing, appears to have stopped, ICD10 Worksheet Patient Problems: Problems Problem Status Onset Primary localized osteoarthritis of left knee Acute Claudication Acute Unstable angina Acute
--- NOTE | 2017-11-20 13:53 | ASMTCMCOM ---
CM Note CM Note Notes: Met with patient and today to discuss discharge planning. PT still recommending SNF at this time. As stated previously, patient and hope to discharge home but are open to SNF. has been to [facility] before and is okay with CM sending referral today. I have sent referral to [facility] via [email or web address]. If patient improves and is able to discharge home - they would like [facility] if medical team is in agreement. indicated she may cancel patient's outpatient therapy appointment on . More TBD. D/C Plan: [facility] vs Home with possible HC. Date Signed: 11/20/2017 01:53 PM Electronically Signed By:Vilma Damon RN
--- NOTE | 2017-11-20 14:30 | HOSPPROG ---
Hospitalist Progress Note Assessment/Plan: Slurred speech - resolved. suspect opioid side effect. CT head neg. -avoid opioids if possible -cont neurochecks S/P TKA - scheduled Tylenol, prn Tramadol for pain control. Pt and note he doesn't do well with opiates, but poor pain control today -will give one time dose of IV toradol to address pain Hypertension - BP's well controlled post-operatively -cont Coreg, Jurgen, Nifedipine H/O TIA - cont ASA, Plavix, statin DVT PPLX - per ortho. I recommend Lovenox 40 mg daily Full code Dispo - cont inpt. Medicine will continue to follow. Subjective: Pt doing ok, slow to ambulate and difficulty with pain control today. No CP or SOB. No neurologic symptoms. Taking po well. No fevers. Objective: Vital Signs Temp Pulse Resp BP Pulse Ox 36.7 C 79 17 138/68 H 93 11/20/17 07:28 11/20/17 07:28 11/20/17 07:28 11/20/17 07:28 11/20/17 07:28 Laboratory Results 11/19/17 04:33 11/19/17 12:55 11/19/17 11/20/17 11/21/17 05:59 05:59 05:59 Intake Total 1050 1650 500 Output Total 700 3100 1050 Balance 350 -1450 -550 - Physical Exam Constitutional: no apparent distress Eyes: PERRL Ears, Nose, Mouth, Throat: moist mucous membranes Cardiovascular: regular rate and rhythym Respiratory: no respiratory distress Gastrointestinal: normoactive bowel sounds, soft, non-tender abdomen Skin: warm Musculoskeletal: full muscle strength, other Neurologic: AAOx3, sensation intact bilaterally Psychiatric: interacting appropriately ICD10 Worksheet Patient Problems: Problems Problem Status Onset Primary localized osteoarthritis of left knee Acute Claudication Acute Unstable angina Acute
[2017-11-20] MEDS ORDERED: KETOROLAC 15 MG/1 ML SDV IVP ONE (14:47)
[2017-11-20] MEDS: ATORVASTATIN CALCIUM 40 MG TAB PO SCH (21:28)
[2017-11-21] MEDS: traMADol 50 MG TAB PO PRN ×4 (01:40→20:56)
[2017-11-21] MEDS: ACETAMINOPHEN 500 MG TAB PO SCH ×4 (05:51→21:59)
[2017-11-21] MEDS: CYCLOBENZAPRINE 10 MG TAB PO PRN (05:52)
[2017-11-21] MEDS: metFORMIN HCL 500 MG TAB PO SCH (08:02)
[2017-11-21] MEDS: FAMOTIDINE 20 MG TAB PO SCH ×2 (08:02→20:58)
[2017-11-21] MEDS: GABAPENTIN 300 MG CAP PO SCH ×2 (08:03→20:57)
[2017-11-21] MEDS: buPROPion SR 150 MG TAB PO SCH ×2 (08:03→20:58)
[2017-11-21] MEDS: NIFEdipine ER 30 MG TAB PO SCH (08:03)
[2017-11-21] MEDS: ASPIRIN EC 81 MG TAB PO SCH (08:03)
[2017-11-21] MEDS: ENALAPRIL MALEATE 5 MG TAB PO SCH (08:04)
[2017-11-21] MEDS: SENNOSIDES/DOCUSATE SODIUM TAB PO SCH ×2 (08:04→20:56)
[2017-11-21] MEDS: MAGNESIUM OXIDE 400 MG TAB PO SCH (08:04)
[2017-11-21] MEDS: CLOPIDOGREL BISULFATE 75 MG TAB PO SCH (08:04)
[2017-11-21] MEDS: CARVEDILOL 6.25 MG TAB PO SCH ×2 (08:04→18:04)
[2017-11-21] MEDS: INSULIN REGULAR HUMAN 100 UNIT/ML UNIT SC SCH ×4 (08:07→21:11)
--- NOTE | 2017-11-21 13:48 | SOAPPROG ---
SOAP Progress Note Assessment/Plan: Assessment: Patient is doing well POD 4 s/p L TKA 1). Pain management: pain controlled has been improved with increase dose of tramadol and continued scheduled tylenol. 2). VTE ppx: recommend resuming plavix and aspirin 81 mg cont RAFI and SCDs 3). Anemia: level is expected initially postop. Asymptomatic. Continue to monitor 4). D/c planning: d/c to SNF for continued support postop d/c tomorrow. Plan: 11/18/17 09:44 11/20/17 10:36 11/21/17 13:46 Subjective: brian is doing well, mod pain, sitting comfortably in chair Objective: Vital Signs Temp Pulse Resp BP Pulse Ox 36.8 C 84 16 145/83 H 93 11/21/17 00:00 11/21/17 08:00 11/21/17 08:00 11/21/17 08:00 11/21/17 08:00 Laboratory Results 11/19/17 04:33 11/19/17 12:55 11/20/17 11/21/17 11/22/17 05:59 05:59 05:59 Intake Total 1650 1200 Output Total 3100 2000 Balance -1450 -800 LLE: incision dressing is dry, NVI, +pf/df ICD10 Worksheet Patient Problems: Problems Problem Status Onset Primary localized osteoarthritis of left knee Acute Claudication Acute Unstable angina Acute
--- NOTE | 2017-11-21 14:07 | ASMTCMCOM ---
CM Note CM Note Notes: wanted to know if [facility] had accepted patient. Contacted [facility] and they should have bed availability on Wednesday. Gave info to patient and . Date Signed: 11/21/2017 02:06 PM Electronically Signed By:Celina Almodovar LCSW
[2017-11-21] MEDS: ATORVASTATIN CALCIUM 40 MG TAB PO SCH (20:57)
[2017-11-22] MEDS: traMADol 50 MG TAB PO PRN ×2 (06:41→15:36)
[2017-11-22] MEDS: ACETAMINOPHEN 500 MG TAB PO SCH ×2 (06:42→13:25)
[2017-11-22] MEDS: INSULIN REGULAR HUMAN 100 UNIT/ML UNIT SC SCH ×2 (08:06→12:59)
[2017-11-22] MEDS: CYCLOBENZAPRINE 10 MG TAB PO PRN (09:00)
--- NOTE | 2017-11-22 09:52 | PDIAF ---
- Diagnosis Diagnosis: s/p L TKA Code Status: Full Code - Medication Management Discharge Medications: Medications to Continue on Transfer Aspirin EC [Aspirin EC 81 mg (*)] 81 mg PO DAILY 08/24/17 [Last Taken 11/16/17] Bupropion HCl [Bupropion HCl Sr] 150 mg PO HS 08/24/17 [Last Taken 11/16/17] Bupropion HCl [Bupropion HCl Sr] 300 mg PO DAILY 08/24/17 [Last Taken 11/17/17 06:15] Carvedilol [Coreg (*)] 6.25 mg PO BIDMEAL 08/24/17 [Last Taken 11/17/17 06:15] Cholecalciferol Vit D3 [Vitamin D3 (*)] 5,000 units PO DAILY 08/24/17 [Last Taken 11/16/17] Clopidogrel Bisulfate [Plavix (*)] 75 mg PO DAILY 08/24/17 [Last Taken 11/09/17] Enalapril Maleate [Vasotec 5 MG (*)] 5 mg PO DAILY 08/24/17 [Last Taken 11/16/17 ] Gabapentin [Neurontin 300 MG (*)] 600 mg PO DAILY 08/24/17 [Last Taken 11/17/17 06:15] Magnesium Oxide [Magnesium Oxide 400 mg (*)] 400 mg PO DAILY 08/24/17 [Last Taken 11/16/17] NIFEdipine ER [Adalat CC 30 mg (*)] 30 mg PO DAILY 08/24/17 [Last Taken 06:15] Clayton-3 Fatty Acids [Fish Oil 1000 mg (*)] 2,000 mg PO DAILY 08/24/17 [Last Taken 11/16/17] Simvastatin [Zocor] 80 mg PO HS 08/24/17 [Last Taken 11/16/17 21:00] metFORMIN HCL [Metformin HCl] 500 mg PO DAILY 08/24/17 [Last Taken 11/16/17 06: 30] Gabapentin [Neurontin] 900 mg PO HS 11/17/17 [Last Taken Unknown] Acetaminophen [Tylenol 325mg (*)] 650 mg PO Q6HRS tab 11/18/17 [Last Taken Unknown] Polyethylene Glycol 3350 [Miralax 17 gm (*)] 17 gm PO DAILY PRN pkt 11/18/17 [ Last Taken Unknown] Sennosides/Docusate Sodium [Senokot-S] 1 - 2 tab PO BID tab 11/18/17 [Last Taken Unknown] Acetaminophen [Tylenol ES 500 mg (*)] 1,000 mg PO Q8 tab 11/22/17 [Last Taken Unknown] traMADol [Ultram 50 mg (*)] 50 - 100 mg PO Q6HRS PRN tab 11/22/17 [Last Taken Unknown] Discharge Medications: Refer to the Discharge Home Medication list for PRN reason. - Orders Isolation Type: None Diet Recommendation: no restrictions on diet Diet Texture: Regular Texture Diet Additional Instructions: Joint Protocol-Knee Replacement Follow up with Dr. Rios office as scheduled After surgery instructions: You received an adductor canal nerve block yesterday. It alleviates pain for approximately 30 hours. Once the numbness to your anterior joel wears off, your pain will increase. Start taking narcotics even low dose narcotic pain meds as the numbness decreases resume plavix and aspirin (helps to prevent blood clots) Wear thigh high RAFI hose on both legs during the daytime for 2 weeks (helps to prevent blood clots and decrease swelling in the surgical leg). It is ok to remove RAFI hose at night time to give your legs a break. It is common for swelling and bruising to occur in the entire surgical leg even extending to the foot, if concerned call Dr. Jiménez office [phone] Elevate the surgical leg with the ankle above the hip several times a day. ~ Ideally anytime you are resting throughout the day. Attempt to keep the knee straight while elevating by placing pillows under the ankle instead of the knee to elevate. This may be painful, so please do as much as tolerated. ~This will help you achieve full knee extension. Use a walker for 7-14 days Start outpatient physical therapy in 7-10 days Wear an julianna wrap on the knee for 3-4 days after surgery, then it is no longer needed Do exercises in the book 2-3 times a day Ice at least 3-5 times a day for 30 minutes each time, if not more often. ~~We also recommend using the ice machine before falling asleep to help with pain If you have further questions that are not addressed here, please look at the information packet handed to you at the preop appointment. ~Most will be answered on the FAQs, after surgery instructions and incision care pages. *IF YOU HAVE A LIFE THREATENING EMERGENCY, CALL 911. FOR NON-LIFE THREATENING ISSUES, PLEASE CALL DR. RIOS OFFICE FIRST. A PHYSICIAN IS JOINT CREASER 30/11. Incision/Dressing Care: May shower tomorrow, Incision dressing is waterproof. Do not soak in water, but shower is ok. Keep the incision (holt) dressing clean and dry. If the incision dressing gets soiled or wet underneath, change dressing to the dressing given to you by the hospital. (holt dressing will turn black if drainage occurs) Remove incision dressing (holt one) two weeks after surgery. ~Leave steri strips alone. ~They will fall off on their own. Do not have anyone else remove the incision dressing prior to the stated recommendation (2 weeks after surgery). ~If there are incision concerns, contact Dr. Jiménez office. ~(Gloria or Dr. Daley may remove earlier if concerns arise) If incision site (holt dressing) has drainage call Dr. Jiménez office, . ~Gloria and Dr. Daley may ask you to come into the office for further evaluation - Follow Up Care Current Providers and Referrals: Gloria Daley PA [[facility]] - 12/09/17 10:30 am Betsy Dallas MD [Primary Care Provider] -
--- NOTE | 2017-11-22 09:53 | SOAPPROG ---
SOAP Progress Note Assessment/Plan: Assessment: Patient is doing well POD 5 s/p L TKA 1). Pain management: pain controlled has been improved with increase dose of tramadol and continued scheduled tylenol. 2). VTE ppx: recommend resuming plavix and aspirin 81 mg cont RAFI and SCDs 3). Anemia: level is expected initially postop. Asymptomatic. Continue to monitor 4). D/c planning: d/c to SNF for continued support postop d/c today. Plan: 11/18/17 09:44 11/20/17 10:36 11/21/17 13:46 11/22/17 09:52 Subjective: pain is controlled on oral pain meds Objective: Vital Signs Temp Pulse Resp BP Pulse Ox 36.8 C 71 16 145/69 H 93 11/22/17 07:41 11/22/17 07:41 11/22/17 07:41 11/22/17 07:41 11/22/17 07:41 Laboratory Results 11/19/17 04:33 11/19/17 12:55 11/21/17 11/22/17 11/23/17 05:59 05:59 05:59 Intake Total 1200 850 700 Output Total 2000 800 600 Balance -800 50 100 LLE: incision dressing has small area of bloody discharge, NVI, +pf/df ICD10 Worksheet Patient Problems: Problems Problem Status Onset Primary localized osteoarthritis of left knee Acute Claudication Acute Unstable angina Acute
[2017-11-22] MEDS: ENALAPRIL MALEATE 5 MG TAB PO SCH (10:09)
[2017-11-22] MEDS: CLOPIDOGREL BISULFATE 75 MG TAB PO SCH (10:09)
[2017-11-22] MEDS: buPROPion SR 150 MG TAB PO SCH (10:09)
[2017-11-22] MEDS: MAGNESIUM OXIDE 400 MG TAB PO SCH (10:10)
[2017-11-22] MEDS: metFORMIN HCL 500 MG TAB PO SCH (10:10)
[2017-11-22] MEDS: FAMOTIDINE 20 MG TAB PO SCH (10:10)
[2017-11-22] MEDS: GABAPENTIN 300 MG CAP PO SCH (10:10)
[2017-11-22] MEDS: NIFEdipine ER 30 MG TAB PO SCH (10:11)
[2017-11-22] MEDS: SENNOSIDES/DOCUSATE SODIUM TAB PO SCH (10:11)
[2017-11-22 10:15] VITALS: BP 157/67
[2017-11-22] MEDS: ASPIRIN EC 81 MG TAB PO SCH (10:21)
[2017-11-22] MEDS: CARVEDILOL 6.25 MG TAB PO SCH (10:21)
--- NOTE | 2017-11-22 12:54 | ASMTCMCOM ---
CM Note CM Note Notes: Pt medically stable for d/c to [facility]. Orders sent in [employer]. Lupe with [facility] scheduled wc transport for 1700. NEREYDA Oconnor to call report. Date Signed: 11/22/2017 12:53 PM Electronically Signed By:DARLYN Glynn
--- NOTE | 2017-11-22 12:55 | ASMTLACE ---
LIAM Length of stay for Answers: 3 days current admission Acuity / Level of Answers: Yes Care: Did the patient have an inpatient admission? Comorbidities - select Answers: Congestive heart failure all that apply Coronary Artery Disease Opioid dependence / Chronic pain Other Notes: HTN # of Emergency department Answers: 0 visits in the last 6 months Social determinants Answers: Mental health diagnosis (anxiety, depression, pers onality disorders, etc.) Score: 18 Date Signed: 11/22/2017 12:54 PM Electronically Signed By:DARLYN Gylnn
--- NOTE | 2017-11-23 10:13 | ASDISCHSUM ---
Discharge Information Plan Status:SNF Medically Cleared to Leave: Discharge Date:11/22/2017 05:13 PM CM D/C Disposition:Longterm Facility ADT D/C Disposition:Longterm Facility Projected Discharge Date:11/22/2017 11:00 AM Transportation at D/C:Wheelchair Van Discharge Delay Reason: Follow-Up Date:11/22/2017 11:00 AM Discharge Slot: Final Diagnosis:L TKA Placement Information Referral Type:*Residential/SNF Referral ID:[id number] Provider Name:Naima Marina Address 1:[address] Phone Number: Address 2: Fax Number: City:[place] Selection Factors: State:[place] Patient Contact Information Contact Name:ALEXIS ANDERSEN (SUE) Relationship: Address:[address] City:[place] Phone: State/Zip Code:[place] [address] Email: Financial Information Financial Class:Medicare Advantage Plans Primary Plan Desc:AARP MEDICARE COMPLETE Primary Plan Number:[id number] Secondary Plan Desc: Secondary Plan Number: Assessment Information LACE LACE Length of stay for Answers: 3 days current admission Acuity / Level of Answers: Yes Care: Did the patient have an inpatient admission? Comorbidities - select Answers: Congestive heart failure all that apply Coronary Artery Disease Opioid dependence / Chronic pain Other Notes: HTN # of Emergency department Answers: 0 visits in the last 6 months Social determinants Answers: Mental health diagnosis (anxiety, depression, pers onality disorders, etc.) Score: 18 Date Signed: 11/22/2017 12:54 PM Electronically Signed By:DARLYN Glynn [facility] CM Progress Note CM Note CM Note Notes: Pt had planned L TKA. OT rec home/HHC, PT rec outpatient. Pt not interested in HHC; reports he knows what [facility] is and he does not want to be "homebound." Pt has outpatient PT scheduled. Pt resides with . Pt declines resources such as [facility] [employer] [facility] and information on private pay unskilled home care. Anticipate pt will d/c when medically stable, no CM d/c needs identified. Date Signed: 11/18/2017 12:45 PM Electronically Signed By:DARLYN Glynn [facility] CM Progress Note CM Note CM Note Notes: Pt had slurred speech this morning, hospitalist now consulting. Today PT rec SNF. Spoke with pt and Anju about SNF rec. Pt is not interested in SNF, pt verbalizes his current physical challenges and limitations and states he can go home once his medications are under control. Anju was in [facility] a couple years ago and they both vacillate on if they would be agreeable to consider [facility] should SNF be needed. Pt still not agreeable to [facility], reports he has outpatient PT scheduled at [facility]. CM will continue to follow pt progress. Date Signed: 11/19/2017 03:21 PM Electronically Signed By:DARLYN Glynn [facility] CM Progress Note CM Note CM Note Notes: Met with patient and today to discuss discharge planning. PT still recommending SNF at this time. As stated previously, patient and hope to discharge home but are open to SNF. has been to [facility] before and is okay with CM sending referral today. I have sent referral to [facility]. If patient improves and is able to discharge home - they would like [facility] if medical team is in agreement. indicated she may cancel patient's outpatient therapy appointment on . More TBD. D/C Plan: [facility] vs Home with possible HC. Date Signed: 11/20/2017 01:53 PM Electronically Signed By:Vilma Damon RN [facility] CM Progress Note CM Note CM Note Notes: wanted to know if [facility] had accepted patient. Contacted [facility] and they should have bed availability on Wednesday. Gave info to patient and . Date Signed: 11/21/2017 02:06 PM Electronically Signed By:Celina Almodovar LCSW [facility] CM Progress Note CM Note CM Note Notes: Pt medically stable for d/c to [facility]. Orders sent in [facility]. Lupe with [facility] scheduled wc transport for 1700. NEREYDA Oconnor to call report. Date Signed: 11/22/2017 12:53 PM Electronically Signed By:DARLYN Glynn Intervention Information Intervention Type:*IM-Signed Date of Service:11/22/2017 11:51 AM Patient Type:Inpatient Staff Member:Veda Cormier Hours: Discipline: Severity: Comment:
--- NOTE | 2017-12-07 07:59 | GDS ---
[f rep st] DISCHARGE SUMMARY ADMISSION DIAGNOSIS: Left knee osteoarthritis. DISCHARGE DIAGNOSIS: Left knee osteoarthritis. PROCEDURE: Left total knee arthroplasty. VTE PROPHYLAXIS: Recommend patient resume Plavix and baby aspirin, which he was on prior to surgery. BRIEF DESCRIPTION OF HOSPITAL STAY: Patient was admitted for an elective joint arthroplasty. The pa nikhil tolerated the procedure well and has passed physical therapy. The patient was given appropriat e antibiotic prophylaxis and venous thromboembolism prophylaxis. The patient's pain was well control led on oral pain medication, patient was holding down food, and had urinated. Decision was made to d ischarge the patient. The patient was given post-operative prescriptions pre-operatively. PLAN: To follow up as scheduled with Dr. Daley's office. He was discharged to a long-term facility because he was needing the additional support and livier ab services postoperatively. /[id number]/MODL
== END 2017-11-22 17:13 | DRG 470 ==
LOC: F3N 11-17 10:51 → OBSVTOIN 11-19 10:38
PROVIDERS: ADMIT Orthopaedic Surgery; ATTEND Orthopaedic Surgery
PROC: 0SRD0J9 Replacement of Left Knee Joint with Synthetic Substitute, Cemented, Open Approach (ICD-10-PCS; principal; 2017-11-19)
DX: M17.12 Unilateral primary osteoarthritis, left knee (principal); R47.81 Slurred speech; T40.2X5A Adverse effect of other opioids, initial encounter; I25.10 Atherosclerotic heart disease of native coronary artery without angina pectoris; Z95.5 Presence of coronary angioplasty implant and graft; Z95.1 Presence of aortocoronary bypass graft; Z79.01 Long term (current) use of anticoagulants; Z79.82 Long term (current) use of aspirin; I10 Essential (primary) hypertension; Z87.891 Personal history of nicotine dependence; Z86.73 Personal history of transient ischemic attack (TIA), and cerebral infarction without residual deficits
CPT/HCPCS: 97110-GP; 97116-GP; 97161-GP; 97165-GO; 97530-GO; 97535-GO; G0378; G8978-GP-CJ; G8979-GP-CI; G8987-GO-CJ; G8988-GO-CI; J0171; J0690; J1100; J1170; J1815; J1885; J2250; J2405; J2704; J2795; J3010

== ENCOUNTER → 2018-02-06 | Outpatient (CLI) | payer OTHER | LOC: FIMAGING 09:36 | PROVIDERS: ATTEND Orthopaedic Surgery Orthopaedic Surgery of the Spine | DX: M54.16 Radiculopathy, lumbar region (principal); M51.36 Other intervertebral disc degeneration, lumbar region ==

== ENCOUNTER → 2018-03-07 | Outpatient (CLI) | payer OTHER | LOC: FIMAGING 11:20 | PROVIDERS: ATTEND Podiatrist | DX: I70.8 Atherosclerosis of other arteries (principal); Z98.890 Other specified postprocedural states ==

== ENCOUNTER 2018-08-30 22:26 | Emergency (ER) | payer OTHER | END 2018-08-30 23:20 | disposition home or self-care (01) | DX: M70.22 Olecranon bursitis, left elbow (principal); L03.114 Cellulitis of left upper limb | CPT/HCPCS: 23931; 96365; 99284; J0696 ==

== ENCOUNTER 2018-08-31 22:05 | Emergency (ER) | payer OTHER ==
[2018-08-31] MEDS ORDERED: SULFAMETHOX/TMP 800/160 MG 1 TAB PO ONE (22:18)
--- NOTE | 2018-08-31 22:20 | EDPHY ---
H & P Source: Patient Exam Limitations: No limitations - Personal History Tetanus Vaccine Date: within 10 years - Medical/Surgical History Hx Asthma: No Hx Chronic Respiratory Disease: No Hx Diabetes: No Hx Cardiac Disease: Yes Hx Renal Disease: No Hx Cirrhosis: No Hx Alcoholism: No Hx HIV/AIDS: No Hx Splenectomy or Spleen Trauma: No Other PMH: STENT 2003.TRIPLE BY [id number]. 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 2 stents in rt upper leg 04/22 (3rd time), HTN, hyperlipidemia, depression - Family History Significant Family History: No pertinent family hx - Social History Smoking Status: Former smoker Alcohol Use: None Time Seen by Provider: 08/31/18 22:08 HPI/ROS: CHIEF COMPLAINT: Cellulitis HISTORY OF PRESENT ILLNESS: Patient is a 73-year-old man who [facility] Pacheco. He had an olecranon bursitis that drained spontaneously. He was started on Keflex. He was seen Wednesday night here in the emergency department and the olecranon bursitis/abscess was I &D'd by Dr. Brar. Cultures were sent and are positive for gram-positive cocci. He was given a g of IV Rocephin and has continued the Keflex. The patient returns today with concerned because his hand is slightly swollen distally. Overall the erythema has improved. He has not had a fever. Minimal drainage from the incised bursitis. Severity: Moderate Modifying factors: None REVIEW OF SYSTEMS: Constitutional: denies: chills, fever, recent illness, recent injury EENTM: denies: blurred vision, double vision, nose congestion Respiratory: denies: cough, shortness of breath Cardiac: denies: chest pain, irregular heart rate, lightheadedness, palpitations Gastrointestinal/Abdominal: denies: abdominal pain, diarrhea, nausea, vomiting, blood streaked stools Genitourinary: denies: dysuria, frequency, hematuria, pain Musculoskeletal: denies: joint pain, muscle pain Skin: See HPI Neurological: denies: headache, numbness, paresthesia, tingling, dizziness, weakness Hematologic/Lymphatic: denies: blood clots, easy bleeding, easy bruising Immunologic/allergic: denies: HIV/AIDS, transplant 10 systems reviewed and negative except as noted EXAM: GENERAL: Well-appearing, well-nourished and in no acute distress. HEAD: Atraumatic, normocephalic. EYES: Pupils equal round and reactive to light, extraocular movements intact, sclera anicteric, conjunctiva are normal. ENT: TMs normal, nares patent, oropharynx clear without exudates. Moist mucous membranes. NECK: Normal range of motion, supple without lymphadenopathy or JVD. LUNGS: Breath sounds clear to auscultation bilaterally and equal. No wheezes rales or rhonchi. HEART: Regular rate and rhythm without murmurs, rubs or gallops. ABDOMEN: Soft, nontender, normoactive bowel sounds. No guarding, no rebound. No masses appreciated. BACK: No CVA tenderness, no spinal tenderness, step-offs or deformities EXTREMITIES: Normal range of motion, no pitting or edema. No clubbing or cyanosis. Minimal swelling and left hand. Nontender. Normal range of motion. Normal pulses and sensation. NEUROLOGICAL: Cranial nerves II through XII grossly intact. Normal speech, normal gait. 5/5 strength, normal movement in all extremities, normal sensation , normal reflexes PSYCH: Normal mood, normal affect. SKIN: Left elbow bursa I indeed with gauze packing, minimal serosanguineous drainage. Mild surrounding erythema, significantly decreased compared to demarcation lines drawn yesterday evening. (Vince Cook) Constitutional: Initial Vital Signs Temperature (C) 36.9 C 08/31/18 22:10 Heart Rate 71 08/31/18 22:10 Respiratory Rate 16 08/31/18 22:10 Blood Pressure 132/60 H 08/31/18 22:10 O2 Sat (%) 93 08/31/18 22:10 O2 Delivery Mode Room Air Allergies/Adverse Reactions: codeine [Codeine] Allergy (Severe, Verified 08/31/18 22:08) Anaphylaxis morphine [Morphine] Allergy (Severe, Verified 08/31/18 22:08) Anaphylaxis hydromorphone [From Dilaudid] Allergy (Verified 08/31/18 22:08) Home Medications: Medication Instructions Recorded Aspirin EC [Aspirin EC 81 mg (*)] 81 mg PO DAILY 08/24/17 Bupropion HCl [Bupropion HCl Sr] 150 mg PO HS 08/24/17 Bupropion HCl [Bupropion HCl Sr] 300 mg PO DAILY 08/24/17 Carvedilol [Coreg (*)] 6.25 mg PO BIDMEAL 08/24/17 Cholecalciferol Vit D3 [Vitamin D3 5,000 units PO DAILY 08/24/17 (*)] Clopidogrel Bisulfate [Plavix (*)] 75 mg PO DAILY 08/24/17 Enalapril Maleate [Vasotec 5 MG 5 mg PO DAILY 08/24/17 (*)] Gabapentin [Neurontin 300 MG (*)] 600 mg PO DAILY 08/24/17 Magnesium Oxide [Magnesium Oxide 400 mg PO DAILY 08/24/17 400 mg (*)] NIFEdipine ER [Adalat CC 30 mg (*)] 30 mg PO DAILY 08/24/17 Siren-3 Fatty Acids [Fish Oil 1000 2,000 mg PO DAILY 08/24/17 mg (*)] Simvastatin [Zocor] 80 mg PO HS 08/24/17 metFORMIN HCL [Metformin HCl] 500 mg PO DAILY 08/24/17 Gabapentin [Neurontin] 900 mg PO HS 11/17/17 Polyethylene Glycol 3350 [Miralax 17 gm PO DAILY PRN pkt 11/18/17 17 gm (*)] Sennosides/Docusate Sodium 1 - 2 tab PO BID tab 11/18/17 [Senokot-S] Acetaminophen [Tylenol ES 500 mg 1,000 mg PO Q8 tab 11/22/17 (*)] traMADol [Ultram 50 mg (*)] 50 - 100 mg PO Q6HRS PRN tab 11/22/17 Lidocaine [Lidoderm] 1 each TP DAILY #15 adh..patch 03/29/18 Sulfamethox/Tmp 800/160 mg 1 tab PO BID #14 tab 08/31/18 [Bactrim Ds] Medical Decision Making ED Course/Re-evaluation: Overall the patient's cellulitis and bursitis seem to be improving. He has gram -positive cocci on the culture thus far undifferentiated. Because of the abscess described yesterday I will add a antibiotic that covers MRSA. Will start him on Bactrim. He will be given his 1st dose here in the department. We discussed indications for returning including fever or systemic symptoms or worsening erythema. Patient and feel comfortable with this plan. His wound was redressed. They have a follow-up appointment with Orthopedics on Wednesday but I encouraged him to try and make it for tomorrow or Wednesday. (Vince Cook) Differential Diagnosis: Partial list of the Differential diagnosis considered include but were not limited to; bursitis, cellulitis, abscess and although unlikely based on the history and physical exam, I also considered sepsis, gangrene, compartment syndrome, DVT. I discussed these differential diagnoses and the plan with the patient as well as the usual and expected course. The patient understands that the diagnosis is provisional and that in medicine we are not always correct and that further workup is often warranted. Usual and customary warnings were given. All of the patient's questions were answered. The patient was instructed to return to the emergency department should the symptoms at all worsen or return, otherwise to followup with the physician as we discussed. ( Vince Cook) - Data Points Medications Given: Discontinued Medications Trimethoprim/Sulfamethoxazole (Bactrim Ds) 1 ea PO EDNOW ONE PRN Reason: Protocol Stop: 08/31/18 22:19 Last Admin: 08/31/18 22:30 Dose: 1 ea Departure - Departure Disposition: Home, Routine, Self-Care Clinical Impression: Olecranon bursitis of left elbow Cellulitis Qualifiers: Site of cellulitis: extremity Site of cellulitis of extremity: upper extremity Laterality: left Qualified Code(s): L03.114 - Cellulitis of left upper limb Condition: Fair Instructions: Cellulitis (ED), Elbow Bursitis (ED) Referrals: Dewey Pacheco MD [Medical Doctor] - 1-2 days without fail Prescriptions: Sulfamethox/Tmp 800/160 mg [Bactrim Ds] 1 tab PO BID #14 tab
[2018-08-31 22:22] VITALS: BP 132/60
== END 2018-08-31 22:35 | disposition home or self-care (01) ==
LOC: CED 22:05
DX: L03.114 Cellulitis of left upper limb (principal); M70.22 Olecranon bursitis, left elbow
CPT/HCPCS: 99283-ER